=== PATIENT | male | born 1965 | race Caucasian/White ===

== ENCOUNTER 2021-01-27 12:12 | Emergency (ER) | payer OTHER, SELFPAY ==
[2021-01-27 12:34] VITALS: BP 127/84; PULSE 67; RESP 20; TEMP 36.7; O2SAT 96
--- NOTE | 2021-01-27 12:39 | ED.NAVMDI ---
HPI - Nausea/Vomiting/Diarrhea General Chief complaint: Nausea/Vomiting/Diarrhea Stated complaint: stomach flu Source: patient History of Present Illness HPI Narrative: This is 55-year-old gentleman presents with some 2 day history of nausea vomiting with watery diarrhea crampy abdominal pain, with no fever or chills family has similar symptoms with no prior medical history no chest pain no shortness of breath. MD elicited complaint: nausea, vomiting, diarrhea and abdominal pain Onset (ago): day(s) Description of vomiting: watery Related Data Allergies Allergy/AdvReac Type Severity Reaction Status Date / Time No Known Allergies Allergy Verified 01/27/21 12:38 Review of Systems Review of Systems: All systems reviewed & are unremarkable except as noted in HPI and below PMFSH Past Medical History Medical History Patient denies medical problems Social History Social History Gender identity (if verbalized by the patient): Male Exam Const: General: no acute distress and alert Orientation/consciousness: patient oriented x3 HENMT: Head: normal to inspection and contusion Eyes: Pupils: Equal, round and reactive pupils present EOM: EOMs intact bilaterally Neck: Neck: normal visual inspection, no lymphadenopathy and no meningeal signs Chest: Chest palpation & inspection: normal inspection of the chest Resp: Effort & Inspection: normal respiratory effort Auscultation: clear to auscultation bilaterally Cardio: Rate: regular rate Rhythm: regular rhythm GI: GI Palp: Yes Soft to palpation Percussion: Yes normal to percussion Back/Spine/Pelvis: Back: no CVA tenderness Skin: General skin exam: normal color Rashes: no rashes Neuro: General: patient oriented x3, moves all extremities, no meningeal signs and no focal motor deficits Extrem: General: normal to inspection and no pedal edema Psych: Mental Status: mental status grossly normal Course Course Emergency Course: patient received IV fluids and IV Zofran and advised to follow-up with primary care physician if symptoms persist or worsen. Vital Signs Vital signs: Vital Signs Temperature 36.7 C 01/27/21 12:34 Pulse Rate 67 01/27/21 12:34 Respiratory Rate 20 01/27/21 12:34 Blood Pressure 127/84 01/27/21 12:34 Pulse Oximetry 96 06/03/21 12:34 Temperature 36.7 C 01/27/21 12:34 Pulse Rate 67 01/27/21 12:34 Respiratory Rate 20 01/27/21 12:34 Blood Pressure 127/84 01/27/21 12:34 Pulse Oximetry 96 01/27/21 12:34 Critical Care Time Critical Care Time Critical Care Time: No Discharge Plan Discharge Clinical Impression: Gastroenteritis Patient Disposition: Home, Self-Care Condition: Stable Instructions: Antibiotic Form, Clear Liquid Diet (ED), Gastroenteritis (ED) Additional Instructions: Take medicine as prescribed and follow-up with primary care physician if symptoms persist or worsen. Prescriptions: New ondansetron HCl [Zofran] 4 mg tablet 4 mg PO Q6H PRN (Reason: nausea and vomiting) Qty: 10 RF: 0 Follow-up/Referrals: UNKNOWN,DOCTOR [Primary Care Provider] - Stand Alone Forms: Work/School Release IP Time of Disposition: 12:42
[2021-01-27] MEDS: ONDANSETRON INJ 4 MG/2 ML VIAL IV PUSH (12:48)
[2021-01-27] MEDS: SODIUM CHLORIDE 0.9% IV 1,000 ML 999 ML IV CONT (12:48)
[2021-01-27 13:22] VITALS: BP 122/69; PULSE 58; RESP 20; TEMP 36.8; O2SAT 98
--- NOTE | 2021-02-15 12:19 | PC.NURSE ---
01/27/21 LEISA infused 1000mls at 1350 without any problems
== END 2021-01-27 13:33 | disposition home or self-care (01) ==
PROVIDERS: Emergency Provider Emergency Medicine
DX: K52.9 Noninfective gastroenteritis and colitis, unspecified (principal)
CPT/HCPCS: 96361; 96374; 99283; 99284; J2405; J7030

== ENCOUNTER 2021-02-01 08:42 | Outpatient (CLI) | payer OTHER, SELFPAY ==
[2021-02-01 08:56] LABS: Hematocrit 42.3 % (40.0-54.0); Hemoglobin 14.5 g/dL (14.0-18.0); Mean Corpuscular HGB Conc 34.3 g/dL (32.0-36.0); Mean Corpuscular Hemoglobin 30.8 pg (27.0-31.0); Mean Corpuscular Volume 89.8 fL (78.0-102.0); Mean Platelet Volume 8.6 fl (8.7-11.0); Platelet Count Result 260 K/mm3 (150-420); Red Blood Count 4.71 M/mm3 (4.70-6.10); Red Cell Distribution Width 13.2 % (11.6-14.4); White Blood Count 7.8 K/mm3 (4.8-10.8)
[2021-02-01 09:38] LABS: Alanine Aminotransferase 47 U/L (16-63); Albumin Level 3.8 g/dL (3.4-5.0); Alkaline Phosphatase 93 U/L (46-116); Anion Gap 10 mmol/L (8-16); Aspartate Amino Transferase 23 U/L (15-37); Bilirubin,Total 0.4 mg/dL (0.00-1.00); Blood Urea Nitrogen 9 mg/dL (7-18); Calcium 8.8 mg/dL (8.5-10.1); Carbon Dioxide 27 mmol/L (21-32); Chloride 104 mmol/L (98-108); Cholesterol 169 mg/dL (0-200); Estimated Glomerular Filt Rate > 60; Glucose 88 mg/dL (70-99); HDL Direct 25 mg/dL (40-60); LDL Cholesterol Calculated 125 mg/dL (<130); Osmolality Calculated 289 mOsm/kg (285-295); Potassium 3.8 mmol/L (3.5-5.1); Sodium 141 mmol/L (136-145); Total Protein 7.1 g/dL (6.4-8.2); Triglycerides 94 mg/dL (0-150)
[2021-02-01 09:48] LABS: HIV 1 P24 AG Negative (Negative); HIV 1/2 AB Negative (Negative)
[2021-02-03 19:26] LABS: Hepatitis C Signal to Cutoff 0.03 ratio (<1.00); Hepatitis C Virus Antibody Nonreactive (Nonreactive)
== END 2021-02-01 08:43 | disposition home or self-care (01) ==
LOC: CHSLAB 08:46
PROVIDERS: PCP Family Medicine; Visit Provider Family Medicine
DX: Z00.00 Encounter for general adult medical examination without abnormal findings (principal)
CPT/HCPCS: 36415; 80053; 80061; 85027; 86703

== ENCOUNTER 2021-02-07 17:02 | Emergency (ER) | payer OTHER, SELFPAY ==
[2021-02-07 17:36] VITALS: BP 130/66; PULSE 78; RESP 18; TEMP 36.6; O2SAT 97
--- NOTE | 2021-02-07 18:06 | ED.SKABFB ---
HPI - Skin/Abscess/Foreign Bdy General Chief complaint: Wound/Laceration Stated complaint: cyst removed, needs checked Time Seen by Provider: 02/07/21 18:06 Source: patient Mode of arrival: ambulatory Limitations: no limitations History of Present Illness HPI narrative: 55-year-old man comes in today for a chest wound check. patient states that his doctor took a cyst out of his skin 1 week ago. He has had it repacked once. He was scheduled follow-up today to have it rechecked but was unable to make it to the office. Patient states that he has had no fever, nausea, vomiting, tenderness nor has he had any significant drainage or bleeding. complaint: lesion Onset (ago): week(s) (1) Location: chest Severity: mild Quality: sharp Pain Consistency: other ( Only with palpation) Exacerbating factors: palpation Context: other ( cyst removal) Associated symptoms: denies other symptoms Treatments prior to arrival: antibiotic and other (I&D) Related Data Allergies Allergy/AdvReac Type Severity Reaction Status Date / Time No Known Allergies Allergy Verified 02/07/21 08:09 Review of Systems Review of Systems: All systems reviewed & are unremarkable except as noted in HPI and below Constitutional: Constitutional: Denies chills and Denies fever(s) Cardiovascular: Cardiovascular: Denies chest pain and Denies radiating jaw, neck or arm pain Respiratory: Respiratory: Denies cough and Denies dyspnea Gastrointestinal: Gastrointestinal: Denies nausea and Denies vomiting Musculoskeletal: Musculoskeletal: Denies arthralgias and Denies joint swelling Integumentary/Breasts: Skin/Breast: Reports as per HPI, Denies pruritus, Denies erythema and Denies rash Neurologic: Denies dizziness and Denies weakness PMFSH Past Medical History Medical History No active medical problems Surgical History Surgical History No history of previous surgery Family History Family History Father Diabetes mellitus Mother Lung cancer Social History Social History Smoking packs per day: 0.5 Smoking cigarettes per day: 10.0 Years smoked: 30 Smoking pack-years: 15.00 Smoking status: Current every day smoker Gender identity (if verbalized by the patient): Male Exam Const: General: no acute distress and alert Orientation/consciousness: patient oriented x3 Eyes: Conjunctivae: conjunctivae normal Pupils: Equal, round and reactive pupils present EOM: EOMs intact bilaterally Chest: Chest palpation & inspection: normal inspection of the chest Other: 1 cm well-healing wound with any minimal erythema at the edges. There is scant fibrinous material in the wound and it is shallow ( less than 1 cm.) There is a small amount of yellow material is here and to the removed gauze. No tenderness, fluctuance. Cardio: Rate: regular rate Rhythm: regular rhythm Heart sounds: no murmurs Skin: General skin exam: normal color, no jaundice and no pallor Rashes: no rashes Neuro: General: patient oriented x3, moves all extremities, no meningeal signs and CN's II-XI intact bilaterally Extrem: General: normal to inspection and no clubbing, cyanosis or edema Psych: Appearance: grossly normal and well kempt Mental Status: mental status grossly normal Affect: normal affect Attitude: cooperative Thought content: Yes Normal thought content present Course Vital Signs Vital signs: Vital Signs Temperature 36.6 C 02/07/21 17:36 Pulse Rate 78 02/07/21 17:36 Respiratory Rate 18 02/07/21 17:36 Blood Pressure 130/66 02/07/21 17:36 Pulse Oximetry 97 02/07/21 17:36 Temperature 36.6 C 02/07/21 17:36 Pulse Rate 78 02/07/21 17:36 Respiratory Rate 18 02/07/21 17:36 Blood Pressure 130/66 02/07/21 17:3
[2021-02-07 18:21] VITALS: BP 120/88; PULSE 72; RESP 16; TEMP 36.6; O2SAT 95
== END 2021-02-07 18:23 | disposition home or self-care (01) ==
PROVIDERS: Emergency Provider Emergency Medicine; PCP Family Medicine
DX: Z48.00 Encounter for change or removal of nonsurgical wound dressing (principal)
CPT/HCPCS: 99281; 99282

== ENCOUNTER 2022-04-14 09:53 | Outpatient (NON) | payer OTHER, SELFPAY | END 2022-04-14 09:54 | disposition home or self-care (01) | LOC: CHSLAB 09:56 | PROVIDERS: Visit Provider Family Medicine | DX: D36.14 Benign neoplasm of peripheral nerves and autonomic nervous system of thorax (principal) | CPT/HCPCS: 88305; 88342 ==

== ENCOUNTER 2022-04-18 17:31 | Outpatient (CLI) | payer OTHER, SELFPAY ==
[2022-04-20 17:52] LABS: TB Skin Test Erythema 0 mm; TB Skin Test Induration 0 mm (0-10); TB Skin Test Interpretation Negative (Negative); TB Skin Test Site Left Arm
== END 2022-04-18 17:32 | disposition home or self-care (01) ==
LOC: CHSLAB 17:34
PROVIDERS: PCP Family Medicine; Visit Provider Family Medicine
DX: Z00.00 Encounter for general adult medical examination without abnormal findings (principal)
CPT/HCPCS: 36415; 86580